=== PATIENT | male | born 1960 | race Caucasian/White ===

== ENCOUNTER 2020-11-23 11:41 | Emergency (ER) | payer OTHER ==
[~2020-11-23] VITALS: Ht 177.8 cm; Wt 135.6 kg
[~2020-11-23 11:41] MED LIST: AZITHROMYCIN 6600 M1 PO; BACTRIM DS TAB1 EACH PO; DIFLUCAN200 MG PO; DOXYCYCLINE 10100 MG PO; PREDNISONE 10 M10 MG PO; SUSTIVA200 MG PO; TRUVADA1 EAC1 PO; ZOFRAN ODT4 MG PO
[2020-11-23] MEDS ORDERED: ATORVASTATIN CA20 MG PO (11:58)
[2020-11-23] MEDS ORDERED: LISINOPRIL-HCT1 EAC1 PO (11:58)
[2020-11-23] MEDS ORDERED: TRIUMEQ TABLET1 EACH PO (11:58)
[2020-11-23] MEDS ORDERED: FARXIGA5 MG PO (11:59)
[2020-11-23] MEDS ORDERED: MELOXICAM15 MG PO (11:59)
[2020-11-23] MEDS ORDERED: METFORMIN HCL500 M3 PO (12:00)
[2020-11-23 13:27] LABS: ABSOLUTE NEUTROPHILS 6.8 thou/uL (1.4-8.2); BASOPHILS 0.6 % (0.0-2.0); EOSINOPHILS 1.2 % (0.0-3.0); HEMATOCRIT 50.7 % (42.0-52.0); HEMOGLOBIN 17.3 gm/dL (14.0-18.0); LYMPHOCYTES 17.9 % (24.0-44.0); MCH 31.8 pg (26.0-34.0); MCHC 34.2 g/dL (28.0-37.0); MCV 93.1 fL (80.0-100.0); MONOCYTES 9.9 % (1.0-8.0); PLATELET COUNT 128 thou/uL (150-400); POLYS 70.4 % (36.0-66.0); RBC 5.44 mil/uL (4.50-6.00); RDW 14.5 % (10.5-14.5); WBC 9.6 thou/uL (4.0-11.0)
[2020-11-23 13:33] LABS: ANION GAP 15 mmol/L (7-16); BUN 19 mg/dL (7-18); CALCIUM 9.5 mg/dL (8.5-10.1); CHLORIDE 102 mmol/L (98-107); CO2 19 mmol/L (21-32); CREATININE 1.2 mg/dL (0.7-1.3); GLUCOSE 146 mg/dL (74-106); SODIUM 136 mmol/L (136-145)
[2020-11-23 13:44] LABS: ALBUMIN 4.3 g/dL (3.4-5.0); MAGNESIUM 2.2 mg/dL (1.8-2.4); SGOT 32 U/L (15-37); SGPT 47 U/L (16-63); TOTAL BILIRUBIN 1.4 mg/dL (0.2-1.0); TOTAL PROTEIN 8.9 g/dL (6.4-8.2); TROPONIN-I <0.06 ng/mL (<0.06)
[2020-11-23 14:05] LABS: FOLIC ACID 21.7 ng/mL (8.6-58.9)
[2020-11-23] MEDS ORDERED: NEURONTIN100 MG PO (14:54)
[2020-11-23] MEDS ORDERED: NORCO 10-325 T1 EACH PO (14:54)
[2020-11-23 16:32] VITALS: BP 123/81
--- NOTE | 2020-11-24 07:10 | EKG ---
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 : 1960 Requested By: Jude Langley Order Number: [id number] MD: Darrell Garcia Measurements Intervals [place] Rate: 97 P: 53 TX: 148 QRS: -34 QRSD: 119 T: 59 QT: 365 QTc: 464 Interpretive Statements Sinus rhythm Nonspecific intraventricular conduction delay Baseline wander in lead(s) V1 Compared to ECG 07/14/2016 20:54:50 Intraventricular conduction delay now present Sinus tachycardia no longer present Electronically Signed On 11-24-2020 7:10:06 CDT by Darrell Garcia [email or web address] <ELECTRONICALLY SIGNED> By: Darrell Garcia MD, [facility] 11/24/20 0710 1226 1226 Darerll Garcia MD, [facility] /EPI
[2020-11-24] MEDS ORDERED: ZOFRAN ODT4 MG PO (21:36)
== END 2020-11-23 15:59 | disposition home or self-care (01) ==
LOC: ER 11:41
PROVIDERS: Physician Assistant
DX: S76.012A Strain of muscle, fascia and tendon of left hip, initial encounter (principal); M51.36 Other intervertebral disc degeneration, lumbar region; G62.9 Polyneuropathy, unspecified; I10 Essential (primary) hypertension; E11.9 Type 2 diabetes mellitus without complications; Z21 Asymptomatic human immunodeficiency virus [HIV] infection status; Z79.899 Other long term (current) drug therapy; Z88.0 Allergy status to penicillin; Z88.1 Allergy status to other antibiotic agents; X58.XXXA Exposure to other specified factors, initial encounter; Y93.89 Activity, other specified; Y92.89 Other specified places as the place of occurrence of the external cause; Y99.8 Other external cause status

== ENCOUNTER 2020-11-24 17:00 | Emergency (ER) | payer OTHER ==
[~2020-11-24] VITALS: Ht 177.8 cm; Wt 135.6 kg
[~2020-11-24 17:00] MED LIST changes: +ATORVASTATIN CA20 MG PO; +FARXIGA5 MG PO; +LISINOPRIL-HCT1 EAC1 PO; +MELOXICAM15 MG PO; +METFORMIN HCL500 M3 PO; +NEURONTIN100 MG PO; +NORCO 10-325 T1 EACH PO; +TRIUMEQ TABLET1 EACH PO
[2020-11-24 18:57] LABS: ABSOLUTE NEUTROPHILS 8.1 thou/uL (1.4-8.2); BASOPHILS 0.3 % (0.0-2.0); EOSINOPHILS 1.1 % (0.0-3.0); HEMATOCRIT 49.4 % (42.0-52.0); HEMOGLOBIN 17.2 gm/dL (14.0-18.0); MCH 32.6 pg (26.0-34.0); MCHC 34.7 g/dL (28.0-37.0); MCV 93.7 fL (80.0-100.0); MONOCYTES 8.2 % (1.0-8.0); PLATELET COUNT 123 thou/uL (150-400); POLYS 76.4 % (36.0-66.0); RBC 5.27 mil/uL (4.50-6.00); RDW 14.7 % (10.5-14.5); WBC 10.7 thou/uL (4.0-11.0)
[2020-11-24 19:04] LABS: CALCIUM 9.3 mg/dL (8.5-10.1); CREATININE 1.1 mg/dL (0.7-1.3); POTASSIUM 3.6 mmol/L (3.5-5.1)
[2020-11-24] MEDS ORDERED: ZOFRAN ODT4 MG PO (21:36)
[2020-11-24 21:44] VITALS: BP 129/77
== END 2020-11-24 21:45 | disposition home or self-care (01) ==
LOC: ER 17:00
PROVIDERS: Emergency Medicine
DX: R11.2 Nausea with vomiting, unspecified (principal); M25.552 Pain in left hip; I10 Essential (primary) hypertension; E11.9 Type 2 diabetes mellitus without complications; Z21 Asymptomatic human immunodeficiency virus [HIV] infection status; Z79.899 Other long term (current) drug therapy; Z88.0 Allergy status to penicillin; Z88.1 Allergy status to other antibiotic agents

== ENCOUNTER 2020-11-28 09:52 | Emergency (ER) | payer OTHER ==
[~2020-11-28] VITALS: Ht 177.8 cm; Wt 136.1 kg
[2020-11-28] MEDS ORDERED: ONDANSETRON HCL4 M3 PO (10:07)
[2020-11-28] MEDS ORDERED: GABAPENTIN 100100 MG PO (10:07)
[2020-11-28 11:44] LABS: HEMATOCRIT 48.5 % (42.0-52.0); HEMOGLOBIN 16.9 gm/dL (14.0-18.0); MCH 32.6 pg (26.0-34.0); MCHC 34.8 g/dL (28.0-37.0); MCV 93.8 fL (80.0-100.0); RBC 5.17 mil/uL (4.50-6.00); RDW 15.1 % (10.5-14.5); WBC 10.3 thou/uL (4.0-11.0)
[2020-11-28 12:18] LABS: CALCIUM 8.9 mg/dL (8.5-10.1)
[2020-11-28 12:24] LABS: ALBUMIN 3.4 g/dL (3.4-5.0); TOTAL BILIRUBIN 1.1 mg/dL (0.2-1.0); TOTAL PROTEIN 7.1 g/dL (6.4-8.2)
[2020-11-28] MEDS ORDERED: FLEXERIL PO (12:50)
[2020-11-28] MEDS ORDERED: ZOFRAN ODT4 MG DISSOLVE (12:50)
[2020-11-28 13:01] VITALS: BP 133/82
== END 2020-11-28 13:02 | disposition home or self-care (01) ==
LOC: ER 09:52
PROVIDERS: Student in an Organized Health Care Education/Training Program
DX: M46.1 Sacroiliitis, not elsewhere classified (principal); I10 Essential (primary) hypertension; E11.9 Type 2 diabetes mellitus without complications; Z88.1 Allergy status to other antibiotic agents; Z79.899 Other long term (current) drug therapy; Z79.2 Long term (current) use of antibiotics; Z87.442 Personal history of urinary calculi

== ENCOUNTER 2020-12-16 23:26 | Inpatient (IN) | payer OTHER ==
[~2020-12-16] VITALS: Ht 177.8 cm; Wt 112.5 kg
[~2020-12-16 23:26] MED LIST changes: +FLEXERIL PO; +GABAPENTIN 100100 MG PO; +ONDANSETRON HCL4 M3 PO; +ZOFRAN ODT4 MG DISSOLVE
[2020-12-16 23:28] VITALS: BP 128/88
[2020-12-17 00:30] LABS: ABSOLUTE NEUTROPHILS 4.3 thou/uL (1.4-8.2); BASOPHILS 0.4 % (0.0-2.0); EOSINOPHILS 0.3 % (0.0-3.0); HEMATOCRIT 48.1 % (42.0-52.0); LYMPHOCYTES 8.4 % (24.0-44.0); MCH 32.5 pg (26.0-34.0); MCHC 35.4 g/dL (28.0-37.0); MCV 91.8 fL (80.0-100.0); MONOCYTES 9.9 % (1.0-8.0); PLATELET COUNT 93 thou/uL (150-400); RBC 5.24 mil/uL (4.50-6.00); RDW 14.9 % (10.5-14.5); WBC 5.3 thou/uL (4.0-11.0)
[2020-12-17 00:33] LABS: ANION GAP 15 mmol/L (7-16); BUN 14 mg/dL (7-18); CALCIUM 9.1 mg/dL (8.5-10.1); CHLORIDE 98 mmol/L (98-107); CO2 19 mmol/L (21-32); CREATININE 1.2 mg/dL (0.7-1.3); GLUCOSE 133 mg/dL (74-106); POTASSIUM 3.8 mmol/L (3.5-5.1); SODIUM 132 mmol/L (136-145)
[2020-12-17 00:43] LABS: ALBUMIN 3.8 g/dL (3.4-5.0); LIPASE 130 U/L (73-393); SGOT 47 U/L (15-37); SGPT 77 U/L (30-65); TOTAL BILIRUBIN 1.3 mg/dL (0.2-1.0); TOTAL PROTEIN 8.1 g/dL (6.4-8.2); TROPONIN-I <0.06 ng/mL (<0.06)
[2020-12-17 02:38] LABS: URINE BILIRUBIN NEGATIVE (Negative); URINE BLOOD 1+ (Negative); URINE CLARITY CLEAR; URINE COLOR YELLOW; URINE GLUCOSE-RANDOM* NEGATIVE (Negative); URINE KETONES 1+ (Negative); URINE LEUKOCYTES-REFLEX NEGATIVE (Negative); URINE NITRITE-REFLEX NEGATIVE (Negative); URINE PROTEIN (DIPSTICK) NEGATIVE (Negative)
[2020-12-17 02:59] LABS: BACTERIA-REFLEX 1-9 Few /HPF (None Seen); CASTS None Seen /LPF (None Seen); CRYSTALS None Seen /LPF (None Seen); MUCUS 0-3 Light strn/LPF (None Seen); SQUAMOUS 0-3 Few /LPF (0-3); URINE RBC 3-10 Few /HPF (NONE SEEN); URINE WBC-REFLEX 0-5 Rare /HPF (0-5)
[2020-12-17 03:39] VITALS: BP 133/86
[2020-12-17] MEDS ORDERED: DULOXETINE HCL30 MG PO (03:44)
[2020-12-17 03:47] VITALS: BP 107/65
[2020-12-17 04:06] VITALS: BP 136/84
--- NOTE | 2020-12-17 06:11 | NUR ---
Pt admitted from ED @ 0355 with frequent falls,kidney stone. 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 Pain on RLQ 3/10 and tolorable. Redness noted on coccyx,encouraged to reposition as tolorated,moisture barrier applied. Voids per urinal;order to restrain urine everytime. Also reports he doesn't check his blood sugar since he has no glucometer;SW consulted. Fall education reinforced and pt agrees to call for help as needed. Resting quietly w/o any distress will continue to monitor pt. Fall precautions in place.
[2020-12-17 07:28] VITALS: BP 117/90
--- NOTE | 2020-12-17 09:16 | EKG ---
[place] [address] [place] [address] ELECTROCARDIOGRAM REPORT Name: YISEL PRATHER Room #: 352-P ADM IN M.R.#: [id number] Admission: 12/17/20 Attend Phys: Dylan Lockett MD Discharge: Date of : 60 Report #: [id number] [facility] ED Test Date: 2020-12-17 Test Time: 00:31:40 Pat Name: YISEL PRATHER Department: Room: [facility] Gender: M Tender Labor: MICHELLE : 1960 Requested By: Quirino Willoughby Order Number: [id number] MD: Bhavik Correia Measurements Intervals [place] Rate: 73 P: 56 VA: 153 QRS: -18 QRSD: 130 T: 76 QT: 409 QTc: 451 Interpretive Statements Sinus rhythm Nonspecific intraventricular conduction delay Early R wave progression Baseline wander in lead(s) V1,V2 Compared to ECG 11/23/2020 12:26:35 No significant changes found Electronically Signed On 12-17-2020 9:16:38 CDT by Bhavik Correia [email or web address] <ELECTRONICALLY SIGNED> By: Bhavik Correia MD, [facility] 12/17/20 0916 Bhavik Correia MD, [facility] /EPI
--- NOTE | 2020-12-17 11:50 | NUR ---
ASSUMED CARE OF PT AT SHIFT CHANGE. PT HAS ISSUE WITH FINE MOTOR SKILLS DUE TO COMPLAINTS OF NUMBNESS IN HANDS. PT HAS LOST 40-50LBS IN THE PAST FEW MONTHS, CONFIRMED BY EX . PT VERY WEAK IN LOWER EXTREMITIES, GAIT BELT AND +1 ASSIST NECESSARY. INSTRUCTIONS HAVE BEEN GIVEN TO PT TO COLLECT URINE TO STRAIN FOR KIDNEY STONES. PT VERBALIZED UNDERSTANDING. PT EX STATES PT SON IS "SPECIAL NEEDS" WITH ADHD, OCD, AND PDD. SHE STATES PT HAS NO ADDITIONAL FAMILY MEMBERS. EX ALSO STATES SHE HAS FELT PT HAS NOT BEEN ABLE TO CARE FOR HIMSELF "FOR QUITE SOMETIME". CM AND CARE TEAM UPDATED.
--- NOTE | 2020-12-17 14:51 | NUR ---
INITIAL ASSESSMENT: Received consult. EMETERIO reviewed chart and spoke with nursing and attending physician. Pt was admitted from home due to weakness/frequent falls. Pt with hx of HIV, HTN, DM. Pt with C7 fracture. Neurosurgery consulted. EMETERIO met with pt and ex- at bedside. Introduced role of SW. Pt's ex- was on the phone with pt's insurance. Pt's insurance policy is out of network with [facility]. No out of network benefits. Both pt and his ex- were extremely upset with insurance. EMETERIO spoke with Opal at [facility] on phone while in pt's room. Per Opal, yesterday should be covered. Clinical info needed in order to authorize today. Pt will need to transfer to an in-network facility ([facility] facilities: [facility], [facility], [facility], [facility], [place] or [facility]). SW had long discussion with pt and ex- regarding recommendation for transfer, in order for services to be covered. Both verbalized understanding. Pt's preferences are [facility], [facility] and [facility]. SW explained process for transfer. SW updated attending physician and pt's nurse. Chart copy completed. Radiology images to be uploaded to the [place] to [facility]. EMETERIO placed call to [facility] transfer center. Provided info. Faxed requested info and provided attending physician's contact info. Awaiting call back. Ambulance form and Transfer form placed on pt's chart. EMETERIO is following to assist as needed with transfer. [facility] TRANSFER CENTER--
[2020-12-17 19:40] VITALS: BP 92/57
[2020-12-17 21:42] VITALS: BP 97/61
[2020-12-18 00:06] LABS: GLYCOHEMOGLOBIN (HGB A1C) 7.1 % (4.8-5.6)
[2020-12-18 03:50] VITALS: BP 98/66
--- NOTE | 2020-12-18 04:23 | NUR ---
Slept fair during the night. Generalized weakness , able to help reposition self on bed. Voided per urinal , urine strained ,no stones seen. Bed alarm on and SCD's in place.
[2020-12-18 05:51] LABS: ALBUMIN 3.2 g/dL (3.4-5.0); CALCIUM 8.2 mg/dL (8.5-10.1); CREATININE 1.1 mg/dL (0.7-1.3); POTASSIUM 3.5 mmol/L (3.5-5.1); TOTAL BILIRUBIN 1.2 mg/dL (0.2-1.0); TOTAL PROTEIN 6.8 g/dL (6.4-8.2)
[2020-12-18 07:28] VITALS: BP 115/77
--- NOTE | 2020-12-18 11:15 | NUR ---
EMETERIO reviewed chart and spoke with nursing and attending physician. Pt is medically stable for transfer to an in-network hospital. EMETERIO placed call to [facility] transfer center and spoke with Dequan, who states they will check with [facility] again this morning. [facility] and [facility] do not have neurosurgery services available. [facility] and [place] are full at this time and not accepting transfers. EMETERIO spoke with neurosurgery [employer] regarding transfer. EMETERIO spoke with [facility] transfer center again to notify that Dr. Reyez prefers his pts go to [facility] [place] [place]. EMETERIO updated pt at bedside. EMETERIO is following to assist as needed with discharge planning.
[2020-12-18] MEDS ORDERED: FLOMAX0.4 MG PO (14:56)
[2020-12-18 15:10] VITALS: BP 107/72
[2020-12-18 18:20] VITALS: BP 107/72
== END 2020-12-18 18:25 | disposition short-term general hospital (02) | DRG 694 ==
LOC: ER 23:26 → EROBS 12-17 03:30 → 3W 12-17 03:30
PROVIDERS: Emergency Medicine; Nurse Practitioner Family; ADMIT Hospitalist; ATTEND Hospitalist
DX: N13.2 Hydronephrosis with renal and ureteral calculous obstruction (principal); M48.52XA Collapsed vertebra, not elsewhere classified, cervical region, initial encounter for fracture; Z87.442 Personal history of urinary calculi; Z20.822 Contact with and (suspected) exposure to COVID-19; I10 Essential (primary) hypertension; Z88.1 Allergy status to other antibiotic agents; E78.5 Hyperlipidemia, unspecified; E11.42 Type 2 diabetes mellitus with diabetic polyneuropathy; M25.552 Pain in left hip; Z60.2 Problems related to living alone; Z79.899 Other long term (current) drug therapy; E11.65 Type 2 diabetes mellitus with hyperglycemia; Z91.19 Patient's noncompliance with other medical treatment and regimen
CPT/HCPCS: 10080